=== PATIENT | female | born 1990 | race Caucasian/White ===

== ENCOUNTER 2016-10-29 00:28 | Emergency (ER) | payer OTHER ==
[2016-10-29 00:41] VITALS: BP 126/71; BMI 24.3
[2016-10-29] MEDS ORDERED: TORADOL 30 MG VIAL IVP ONE (00:57)
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
[2016-10-29] MEDS ORDERED: TORADOL 30 MG VIAL ONE ×2 (00:58→03:27)
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
--- NOTE | 2016-10-29 02:36 | RAD ---
EXAM: Left elbow x-ray INDICATION: Pain COMPARISION: No priors for comparison TECHNIQUE: AP, lateral, and oblique, three views FINDINGS: No acute fracture or dislocation. There is no evidence of an intraosseous lesion. The joint spaces a re preserved. No joint effusion is identified. The surrounding soft tissues appear unremarkable. The re is no evidence of a radiopaque foreign body. IMPRESSION: Normal left elbow x-ray exam Reported By:
--- NOTE | 2016-10-29 02:36 | RAD ---
EXAM: Right wrist x-ray INDICATION: Pain COMPARISION: No priors for comparison TECHNIQUE: AP, lateral, and oblique, three views FINDINGS: No acute fracture or dislocation. The joint spaces are preserved. The soft tissues are normal. No ra diopaque foreign body. IMPRESSION: Normal right wrist x-ray exam Reported By:
--- NOTE | 2016-10-29 02:36 | RAD ---
EXAM: Left ankle x-ray INDICATION: Pain COMPARISION: No priors for comparison TECHNIQUE: AP, lateral, and oblique, three views FINDINGS: No acute fracture or dislocation. There is no evidence of an intraosseous lesion. The joint spaces a re preserved. No joint effusion is identified. The surrounding soft tissues appear unremarkable. The re is no evidence of a radiopaque foreign body. IMPRESSION: Normal left ankle x-ray exam Reported By:
--- NOTE | 2016-10-29 02:37 | RAD ---
EXAM: Left wrist x-ray INDICATION: Pain COMPARISION: No priors for comparison TECHNIQUE: AP, lateral, and oblique, three views FINDINGS: No acute fracture or dislocation. The joint spaces are preserved. The soft tissues are normal. No ra diopaque foreign body. IMPRESSION: Normal left wrist x-ray exam Reported By:
--- NOTE | 2016-10-29 02:37 | RAD ---
EXAM: Right knee x-ray INDICATION: Pain COMPARISION: No priors TECHNIQUE: AP, lateral, and oblique, three views FINDINGS: No acute fracture or dislocation. There is no evidence of an intraosseous lesion. The joint spaces a re preserved. No joint effusion is identified. The surrounding soft tissues appear unremarkable. The re is no evidence of a radiopaque foreign body. IMPRESSION: Normal right knee x-ray exam Reported By:
--- NOTE | 2016-10-29 02:37 | RAD ---
EXAM: Right shoulder x-ray INDICATION: Pain COMPARISION: No priors for comparison TECHNIQUE: Lateral, AP with internal and external rotation, 3 views FINDINGS: No acute fracture or dislocation. The joint spaces are preserved. The soft tissues are normal. No ra diopaque foreign body. The visualize ribs are intact. IMPRESSION: Normal right shoulder x-ray examination Reported By:
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
[2016-10-29] MEDS ORDERED: TORADOL 30 MG VIAL IM STA (03:14)
[2016-10-29] MEDS ORDERED: PHENERGAN INJ 25 MG IM ONE (03:14)
[2016-10-29] MEDS ORDERED: NORFLEX INJ IM ONE (03:15)
[2016-10-29] MEDS ORDERED: PHENERGAN INJ 25 MG ONE (03:27)
[2016-10-29] MEDS ORDERED: NORFLEX INJ ONE (03:27)
== END 2016-10-29 04:17 | disposition home or self-care (01) ==
LOC: ER 00:28
DX: Z04.3 Encounter for examination and observation following other accident (principal); S80.01XA Contusion of right knee, initial encounter; S80.02XA Contusion of left knee, initial encounter; M25.561 Pain in right knee; M25.562 Pain in left knee; M25.532 Pain in left wrist; M25.539 Pain in unspecified wrist; S50.02XA Contusion of left elbow, initial encounter; S96.912A Strain of unspecified muscle and tendon at ankle and foot level, left foot, initial encounter; S00.83XA Contusion of other part of head, initial encounter; V49.9XXA Car occupant (driver) (passenger) injured in unspecified traffic accident, initial encounter
CPT/HCPCS: 70450; 71010; 72125; 73030; 73070; 73100; 73564; 73610; 96365; 96372; 96374; 99283; J1885; J2360; J2550